=== PATIENT | female | born 1995 | race Hispanic/Latino ===

== ENCOUNTER 2018-01-22 07:28 | Observation (INO) | payer MEDICAID ==
[~2018-01-22] VITALS: Ht 160 cm; Wt 65.8 kg
[2018-01-22] VITALS (10 sets, daily range): BP systolic 116–151; BP diastolic 61–97
[2018-01-22] MEDS ORDERED: ERGO500014 PO (08:45)
[2018-01-22] MEDS ORDERED: MYCO500T PO (08:45)
[2018-01-22] MEDS ORDERED: FERS325 PO (08:45)
[2018-01-22] MEDS ORDERED: HYDR200T4 PO ×2 (08:45)
[2018-01-22] MEDS ORDERED: PRED20TA3 PO (08:45)
[2018-01-22] MEDS ORDERED: FOLI0.8T41 PO (08:45)
[2018-01-22 08:56] LABS: HEMATOCRIT 47.8 % (36-48); MEAN CORPUSCULAR HEMOGLOBIN 29.7 pg (27.0-33.0); MEAN CORPUSCULAR HGB CONC 33.6 g/dL (32.0-36.0); MEAN CORPUSCULAR VOLUME 88.5 fL (80-100); PLATELET COUNT (AUTO) 265 K/uL (130-400); WHITE BLOOD COUNT (AUTO) 19.5 K/uL (4.8-10.8)
[2018-01-22 09:04] LABS: CREATININE 0.6 mg/dL (0.5-1.5); POTASSIUM 3.8 mmol/L (3.5-5.1)
[2018-01-22 09:07] LABS: INR 0.89 (0.85-1.15); PARTIAL THROMBOPLASTIN TIME 26.1 SEC (26.3-35.5); PROTHROMBIN TIME 9.4 SEC (9.6-11.6)
[2018-01-22] MEDS ORDERED: LIDOCAINE HCL MPF 1% 5ML VIAL ONE (09:14)
[2018-01-22] MEDS ORDERED: ACETAMINOPHEN 325 MG TAB PO PRN (11:45)
[2018-01-22] MEDS ORDERED: ERGOCALCIFEROL (VITAMIN D2) 50,000 UNIT CAPSULE PO SCH (11:45)
[2018-01-22] MEDS ORDERED: ONDANSETRON HCL 4 MG/2 ML VIAL IVP PRN (11:45)
[2018-01-22] MEDS: HYDROXYCHLOROQUINE SULFATE 200 MG TAB PO SCH (11:45)
[2018-01-22] MEDS: MYCOPHENOLATE MOFETIL 250 MG CAPSULE PO SCH (21:31)
[2018-01-23 00:07] VITALS: BP 146/95
[2018-01-23 04:06] LABS: HEMATOCRIT 46.4 % (36-48); MEAN CORPUSCULAR HEMOGLOBIN 29.1 pg (27.0-33.0); MEAN CORPUSCULAR HGB CONC 33.1 g/dL (32.0-36.0); MEAN CORPUSCULAR VOLUME 87.9 fL (80-100); PLATELET COUNT (AUTO) 241 K/uL (130-400); RED BLOOD CELL COUNT(AUTO) 5.27 MIL/uL (4.00-5.50); RED CELL DISTRIBUTION WIDTH 18.9 % (11.0-15.5); WHITE BLOOD COUNT (AUTO) 20.8 K/uL (4.8-10.8)
[2018-01-23 04:08] LABS: CREATININE 0.9 mg/dL (0.5-1.5)
[2018-01-23 04:55] VITALS: BP 137/90
[2018-01-23 07:59] VITALS: BP 134/84
[2018-01-23] MEDS ORDERED: HYDROXYCHLOROQUINE SULFATE 200 MG TAB PO SCH (09:00)
[2018-01-23] MEDS: MYCOPHENOLATE MOFETIL 250 MG CAPSULE PO SCH ×2 (09:16→20:24)
[2018-01-23] MEDS: FERROUS SULFATE 325 MG TABLET.DR PO SCH (09:18)
[2018-01-23] MEDS: FOLIC ACID/VITAMIN B COMP W-C 1 MG CAPSULE PO SCH (09:18)
[2018-01-23] MEDS: PREDNISONE 10 MG TABLET PO SCH (09:18)
[2018-01-23 11:00] VITALS: BP 138/75
[2018-01-23 16:00] VITALS: BP 140/94
[2018-01-23 20:27] VITALS: BP 139/92
[2018-01-24 00:30] VITALS: BP 143/101
[2018-01-24 03:36] VITALS: BP 130/87
[2018-01-24 04:06] LABS: HEMATOCRIT 44.2 % (36-48); MEAN CORPUSCULAR HEMOGLOBIN 29.9 pg (27.0-33.0); MEAN CORPUSCULAR HGB CONC 33.8 g/dL (32.0-36.0); MEAN CORPUSCULAR VOLUME 88.4 fL (80-100); PLATELET COUNT (AUTO) 233 K/uL (130-400); WHITE BLOOD COUNT (AUTO) 21.4 K/uL (4.8-10.8)
[2018-01-24 04:17] LABS: CREATININE 0.8 mg/dL (0.5-1.5); POTASSIUM 3.6 mmol/L (3.5-5.1)
[2018-01-24 07:30] VITALS: BP 141/94
[2018-01-24 11:00] VITALS: BP 139/93
[2018-01-24] MEDS: MYCOPHENOLATE MOFETIL 250 MG CAPSULE PO SCH (11:38)
[2018-01-24] MEDS: FOLIC ACID/VITAMIN B COMP W-C 1 MG CAPSULE PO SCH (11:38)
[2018-01-24] MEDS: HYDROXYCHLOROQUINE SULFATE 200 MG TAB PO SCH (11:38)
[2018-01-24] MEDS: FERROUS SULFATE 325 MG TABLET.DR PO SCH (11:38)
[2018-01-24] MEDS: PREDNISONE 10 MG TABLET PO SCH (11:40)
[2018-01-24 16:00] VITALS: BP 143/92
== END 2018-01-24 18:40 | disposition home or self-care (01) ==
LOC: DAHIP 07:41 → 3DH 07:56 → EDSTATUS 10:00 → 4BH 19:50
PROVIDERS: ADMIT Internal Medicine Nephrology; ATTEND Internal Medicine Nephrology
DX: M32.14 Glomerular disease in systemic lupus erythematosus (principal); R31.29 Other microscopic hematuria; D64.9 Anemia, unspecified; D72.829 Elevated white blood cell count, unspecified; R31.9 Hematuria, unspecified; T38.0X5A Adverse effect of glucocorticoids and synthetic analogues, initial encounter; Z23 Encounter for immunization; R80.9 Proteinuria, unspecified; E55.9 Vitamin D deficiency, unspecified; Y92.89 Other specified places as the place of occurrence of the external cause
CPT/HCPCS: 36415 ×3; 50200; 76942; 80048 ×3; 85027 ×3; 85610; 85730; 90471; A4510; G0378 ×60; J3490; J7512 ×2; J7517 ×4; Q2038